=== PATIENT | female | born 1995 | race Caucasian/White ===

== ENCOUNTER → 2017-08-20 | Outpatient (CLI) | payer OTHER, BC ==
[2017-08-20 12:11] LABS: HEMATOCRIT 33.1 % (37-47)
== END | disposition home or self-care (01) ==
LOC: C.LAB1850 10:25
PROVIDERS: ATTEND Obstetrics & Gynecology
DX: Z34.02 Encounter for supervision of normal first pregnancy, second trimester (principal); R94.6 Abnormal results of thyroid function studies

== ENCOUNTER → 2017-09-04 | Outpatient (CLI) | payer BC, OTHER ==
[2017-09-04 13:26] LABS: GTGD 50 Grams
[2017-09-04 14:42] LABS: URINE APPEARANCE CLEAR (CLEAR); URINE BILIRUBIN NEG (NEG); URINE COLOR YELLOW; URINE EPITHELIAL CELL AUTO >30 /lpf (0-5); URINE NITRITE NEG (NEG); URINE SPECIFIC GRAVITY 1.015 (1.000-1.030); UROBILINOGEN NEG (NEG)
[2017-09-04 14:45] LABS: MANUAL MICROSCOPIC REQUIRED? NO; REVIEW REQ? NO
== END | disposition home or self-care (01) ==
LOC: C.LAB1850 11:41
PROVIDERS: ATTEND Obstetrics & Gynecology
DX: Z34.02 Encounter for supervision of normal first pregnancy, second trimester (principal)

== ENCOUNTER → 2017-10-22 | Outpatient (CLI) | payer OTHER | END | disposition home or self-care (01) | LOC: C.LABSPEC 10:48 | PROVIDERS: ATTEND Obstetrics & Gynecology | DX: Z34.03 Encounter for supervision of normal first pregnancy, third trimester (principal) ==

== ENCOUNTER 2017-11-19 17:24 | Inpatient (IN) | payer OTHER ==
[~2017-11-19] VITALS: Ht 157.5 cm; Wt 73.2 kg
[2017-11-19 17:47] VITALS: Ht 157.5 cm; Wt 73.2 kg
[2017-11-19] MEDS ORDERED: PRENTAB26 PO (18:28)
[2017-11-19] MEDS ORDERED: LACTATED RINGER'S 1000ML 1,000 ML IV SCH (23:38)
[2017-11-19] MEDS ORDERED: LACTATED RINGER'S 1000ML 1,000 ML IV PRN (23:38)
[2017-11-19] MEDS ORDERED: BUPIVACAINE 0.25% 30 ML VIAL ONE (23:47)
[2017-11-19] MEDS ORDERED: FENTANYL 2MCG/ML ROPIV 1.25MG/ML 100ML BAG EPI ONE (23:48)
[2017-11-19] MEDS ORDERED: FENTANYL CITRATE INJ 50 MCG/1 ML 2 ML VIAL ONE (23:48)
[2017-11-19] MEDS ORDERED: EpHEDrine SULFATE INJ 50 MG/ML AMP ONE (23:48)
[2017-11-20 00:26] LABS: HEMATOCRIT 33.1 % (37-47); HEMOGLOBIN 11.6 g/dL (12.0-16.0); MEAN CELL VOLUME 93.2 fL (80-100); MEAN CORPUSCULAR HEMOGLOBIN 32.7 pg (25-34); PLATELET COUNT 144 K/uL (130-400); RED CELL DISTRIBUTION WIDTH CV 12.9 % (11.5-14.5); RED CELL DISTRIBUTION WIDTH SD 44.5 fL (36.4-46.3); WHITE BLOOD COUNT 17.27 K/uL (4.8-10.8)
[2017-11-20] MEDS ORDERED: NALOXONE HCL INJ 1 MG in SODIUM CHLORIDE 0.9% 1000ML 1,000 ML IV PRN (01:44)
[2017-11-20] MEDS ORDERED: LACTATED RINGER'S 1000ML 500 ML IV PRN (01:44)
[2017-11-20] MEDS ORDERED: FENTANYL 2MCG/ML ROPIV 1.25MG/ML 100ML BAG EPI PRN (01:45)
[2017-11-20] MEDS ORDERED: NALOXONE HCL INJ 0.4 MG/1 ML VIAL/CARP IV PRN (01:45)
[2017-11-20] MEDS ORDERED: DiphenhydrAMINE HCL 50 MG/ML VIAL IV PRN (01:45)
[2017-11-20] MEDS ORDERED: NALBUPHINE HCL INJ 10 MG/ML AMP IV PRN (01:45)
[2017-11-20] MEDS ORDERED: ONDANSETRON INJ 2 MG/ML 2 ML VIAL IV PRN (01:45)
[2017-11-20] MEDS ORDERED: EpHEDrine SULFATE INJ 50 MG/ML AMP IV PRN (01:45)
[2017-11-20] MEDS ORDERED: OXYTOCIN 30 UNITS/500ML NSS IV ONE (04:43)
[2017-11-20] MEDS ORDERED: LACTATED RINGER'S 1000ML 1,000 ML IV SCH (05:37)
[2017-11-20] MEDS ORDERED: SUPERCREAM 0.870 % 15GM JAR EXT PRN (05:45)
[2017-11-20] MEDS ORDERED: LANOLIN OINT EXT PRN (05:45)
[2017-11-20] MEDS ORDERED: OXYCODONE/ACETAMINOPHEN 5-325 TAB PO PRN (05:45)
[2017-11-20] MEDS ORDERED: HYDROCORTISONE ACETATE 25 MG SUPP PR PRN (05:45)
[2017-11-20] MEDS ORDERED: OXYTOCIN 30 UNITS/500ML NSS IV PRN (05:45)
[2017-11-20] MEDS ORDERED: ACETAMINOPHEN 325 MG TAB PO PRN (05:45)
[2017-11-20] MEDS ORDERED: BENZOCAINE 20% AER SPR 82.5 GM CAN EXT PRN (05:45)
--- NOTE | 2017-11-20 07:21 | Anesthesia Procedure Note ---
Anesthesia Epidural Removal Nt Date & Time Nov 20, 2017 at 07:21 Vital Signs Pain Intensity: 0.0 Notes Mental Status: alert / awake / arousable, participated in evaluation Nausea / Vomiting: adequately controlled Pain: adequately controlled Airway Patency, RR, SpO2: stable & adequate BP & HR: stable & adequate Hydration State: stable & adequate Neuraxial Anesthesia: was administered Anesthetic Complications: no major complications apparent, pt satisfied with anesthetic care Epidural: removed without complications, with tip intact
[2017-11-20] MEDS: IBUPROFEN 600 MG TAB PO PRN ×3 (07:36→22:23)
[2017-11-20] MEDS: PRENATAL VITAMIN TAB PO SCH (08:00)
[2017-11-20] MEDS: DOCUSATE SODIUM 100 MG CAP PO SCH ×2 (08:00→20:52)
[2017-11-20 08:40] VITALS: BP 106/74; PULSE 108; TEMP 37.2; O2SAT 95
--- NOTE | 2017-11-20 09:52 | DELIVERY SUMMARY ---
DATE OF OPERATION: 11/20/2017 PREOPERATIVE DIAGNOSES: 1. Davey intrauterine at 40 plus weeks. 2. Spontaneous onset of labor. 3. Group B Strep negative. POSTOPERATIVE DIAGNOSES: Same. PROCEDURE: Spontaneous vaginal delivery and repair of second degree perineal laceration. SURGEON: Dr. Yadira Umana. [employer] WARRANT OFFICER: None. ESTIMATED BLOOD LOSS: 300. DISPOSITION: Stable in labor and delivery. DESCRIPTION OF PROCEDURE: April is a 1, para 0, who presented at full term and spontaneous labor. She was managed with an epidural for pain management and artificial rupture of membranes. She reached complete dilation with an urge to push and did very well with her pushing and then I was called for delivery. She was prepped and then over the next several pushes, was able to bring the head to crowing and ultimately delivered. The shoulders delivered with no difficulty and a vigorous female infant was placed on the maternal abdomen with the cord was doubly clamped and cut by the father of the baby. The placenta delivered spontaneously and was intact with a 3-vessel cord. Examination revealed no lacerations of the cervix or vagina; however, there was a second degree perineal laceration, which was repaired in the usual fashion with Vicryl suture. At the completion of repair, the patient and are in stable condition having tolerated delivery well and the fundus was firm with minimal lochia. I attest to the content of the Intraoperative Record and any orders documented therein. Any exception s are noted below.
[2017-11-20 11:30] VITALS: BP 100/63; PULSE 84; TEMP 36.7; O2SAT 97
[2017-11-20 15:40] VITALS: BP 115/76; PULSE 87; TEMP 36.6; O2SAT 96
[2017-11-20 20:10] VITALS: BP 107/71; PULSE 92; TEMP 36.7; O2SAT 98
[2017-11-21] VITALS: BP 106/70; PULSE 81; TEMP 36.6; O2SAT 96; O2SAT 98
[2017-11-21 04:00] VITALS: BP 106/72; PULSE 75; TEMP 36.6; O2SAT 98
[2017-11-21 06:55] LABS: HEMATOCRIT 29.6 % (37-47); HEMOGLOBIN 10.3 g/dL (12.0-16.0)
--- NOTE | 2017-11-21 07:23 | Progress Note ---
Subjective Nov 21, 2017. Subjective conversation w/ patient, physical exam Ambulation: ambulating normally Feeding Type: Breast Feeding Objective Vital Signs Date Time Temp Pulse Resp B/P (MAP) Pulse Ox O2 Delivery O2 Flow Rate FiO2 11/21/17 04:00 36.6 75 18 106/72 (83) 98 Room Air 11/21/17 00:00 96 Room Air 11/21/17 00:00 36.6 81 16 106/70 (82) 98 Room Air 11/20/17 20:10 36.7 92 20 107/71 (83) 98 Room Air 11/20/17 15:40 36.6 87 18 115/76 (89) 96 Room Air 11/20/17 15:40 96 Room Air 11/20/17 11:30 36.7 84 18 100/63 (75) 97 Room Air 11/20/17 08:40 95 Room Air 11/20/17 08:40 37.2 108 20 106/74 (85) 95 Room Air Physical Exam General Appearance: WELL-APPEARING, NO APPARENT DISTRESS Fundus: Firm Extremities: no calf tenderness Laboratory Results Last 24 Hours Test 11/21/17 06:43 Hemoglobin 10.3 g/dL Hematocrit 29.6 % Assessment and Plan Post- Day#: 1 Continue Routine Care: - routine care - doing well
[2017-11-21 07:35] VITALS: BP 101/68; PULSE 71; TEMP 36.6; O2SAT 98
[2017-11-21] MEDS: DOCUSATE SODIUM 100 MG CAP PO SCH ×2 (08:20→20:50)
[2017-11-21] MEDS: PRENATAL VITAMIN TAB PO SCH (08:20)
[2017-11-21] MEDS: IBUPROFEN 600 MG TAB PO PRN ×2 (08:21→16:20)
[2017-11-21] MEDS ORDERED: DIPHTHERIA/TETANUS/PERTUSSIS 0.5 ML SYR/VIAL IM. ONE (09:00)
[2017-11-21 15:30] VITALS: BP 124/83; PULSE 80; TEMP 36.6
[2017-11-21 19:30] VITALS: BP 108/73; PULSE 60; TEMP 36.4
[2017-11-22 00:10] VITALS: BP 119/78; PULSE 71; TEMP 36.7; O2SAT 98
[2017-11-22] MEDS: IBUPROFEN 600 MG TAB PO PRN ×2 (00:20→09:00)
--- NOTE | 2017-11-22 08:04 | Progress Note ---
Subjective Nov 22, 2017. Subjective conversation w/ patient, physical exam, chart review Ambulation: ambulating normally Voiding: no voiding problems Diet Tolerance: Regular Diet Lochia: Small Objective Vital Signs Date Time Temp Pulse Resp B/P (MAP) Pulse Ox O2 Delivery O2 Flow Rate FiO2 11/22/17 00:10 36.7 71 16 119/78 (92) 98 Room Air 11/22/17 00:10 98 Room Air 11/21/17 19:30 36.4 60 20 108/73 (85) Room Air 11/21/17 15:30 36.6 80 20 124/83 (97) Room Air 11/21/17 15:30 Room Air Physical Exam General Appearance: WELL-APPEARING Abdomen: non tender Fundus: Firm Extremities: no calf tenderness Assessment and Plan Post- Day#: 2 Continue Routine Care: Patient is doing well minimal bleeding no calf tenderness plan discharge today
--- NOTE | 2017-11-22 08:05 | Discharge Instructions ---
Discharge Instructions Date of Service Nov 22, 2017. Admission Reason for Admission: Check Labor Discharge Discharge Diagnosis / Problem: Discharge Goals Goal(s): Routine recovery after delivery Activity Recommendations Activity Limitations: per Instructions/Follow-up section . Instructions / Follow-Up Instructions / Follow-Up ACTIVITY RECOMMENDATIONS: * Gradual return to full activity over the next 2-3 weeks. * No lifting - nothing heavier than baby over the next 2-3 weeks. * Do not engage in vigorous exercise, sexual activity or sports until cleared by your physician. * Do not drive or operate any motorized equipment until cleared by your physician. * You may shower/bathe daily. MEDICATIONS: For discomfort or pain, you may use Acetaminophen (Tylenol), Ibuprofen (Advil), or Naproxen (Aleve) following the package directions. For constipation you may use Colace following the package directions. BREAST CARE: If you are not breast feeding: * Wear a supportive bra 24 hours a day for one to two weeks. * Avoid stimulating your breasts and nipples as much as possible during the first few weeks after delivery. * When taking a shower, have the warm water hit your back, not breasts. * When your breasts feel full, apply ice packs. Usually three to four times a day helps ease the discomfort. * Take a mild pain medication (Tylenol / Motrin) when you are uncomfortable. If breast feeding: * Use breast milk to lubricate nipples. Lansinoh cream may be used for sore nipples. You do not need to remove cream prior to breast feeding. If using a different brand of cream, check the label for directions regarding removal of cream prior to nursing. * Wear a supportive bra. * If having problems with breasts or breast feeding, call a financial management consultant or your health care provider. EPISIOTOMY CARE: After delivery, if you have an episiotomy (stitches), the following steps will ease discomfort and aid healing. * For the first 24 hours after delivery, place ice packs next to your episiotomy to help reduce swelling. * After the first 24 hour-period, sitz baths, either portable or in the tub, are suggested. A shower with a shower arm sprayed over the episiotomy may be comforting. * Dahlia care should be done after each voiding and bowel movement. Squirt warm water from a plastic bottle over the perineum (region of the body between the anus and urinary opening) and pat dry. * Use Dermoplast to ease discomfort. Shake container. [place] directly over the episiotomy. Place a Tucks on a clean sanitary pad next to your episiotomy. SPECIAL CARE INSTRUCTIONS: When you are discharged from the hospital, it is important for you to follow the instructions listed below: * During the first week at home, you should be able to care for yourself and your baby. In addition, the usual light household activities are encouraged. * Limit your activities to the way you feel. Do not try to clean the house or move furniture. Be sensible. * If you actively engage in sports and have done so up until the time of your delivery, you may resume these activities as soon as you feel able. This may take up to one month or even longer. Use good judgment. * Continue to take your vitamins for at least six weeks after the of your baby. * Your diet need not be limited unless you were on a special diet before your delivery. Breast-feeding mothers need around 2500 calories per day and at least 64-80 ounces of fluid per day (8 to 10 glasses). * You should eat foods from the four major food groups. Crash diets or fad diets are to be avoided. Eating lean meats, fresh fruits and vegetables, low-fat dairy products, high fiber foods and a regular exercise program, will help you get back to your pre- weight without putting your health at risk. * Constipation is sometimes a problem after delivery. Take a mild laxative as needed. If breast feeding, Milk of Magnesia is acceptable to use. You may use a suppository or Fleets enema if no episiotomy. * A daily shower or tub bath is suggested. Be sure to thoroughly and gently dry the perineum. * A bloody vaginal discharge will usually continue until around four weeks post . A small amount of bleeding may continue for as long as six weeks. Vaginal discharge changes from the bright red bleeding after delivery to pink then brownish and finally yellowish-pink before becoming white and disappearing. * Bleeding may increase with activity. Your first period may come in 4-8 weeks. If you are breast feeding, your period may be delayed even longer. * [place] (sex) can begin whenever both you and your partner feel comfortable and do not have any form of genital infection. It is recommended that you wait at least six weeks for internal and external healing to occur. If you have questions, please talk to your health care practitioner. A condom should be used to prevent infection and . * Foreplay, gentle intercourse and lubrication is very important the first several times to prevent pain. A water-based lubricant such as K-Y jelly or Astroglide may be used. * If you have RH negative blood and your baby is RH positive, you will receive RHOGAM by injection prior to discharge. The nurse will give you a card to keep with you that has the date and place that you received RHOGAM after delivery. * During your care, you had a Rubella screen done to check for the presence of rubella antibodies in your blood. If your test was negative, you will receive a Rubella vaccine prior to discharge. This vaccine may cause a fever, soreness at the injection site and flu-like symptoms. If these symptoms persist, notify your health care practitioner. is not advised for one month after a Rubella vaccine. * Verbalizes understanding of car seat law as reviewed with patient nursing. * Car Seat hand-out given and reviewed with patient by nursing. * Shaken baby information reviewed with patient by nursing. Call you doctor if: * Heavy bleeding (saturating several pads an hour) or passing clots the size of your fist. * A fever >101 degrees F (38.3 degrees C) on two occasions four hours apart and /or chills. * Unusual pain in the pelvic or vaginal areas. * "Baby Blues" lasting longer than two weeks. If you have any questions or concerns, call your health care practitioner at . FOLLOW UP VISIT: * Please call the office at to schedule a 6 week examination. It is important you keep this appointment. It is important for you to make arrangements for either yearly or twice yearly check-ups thereafter. Current Hospital Diet Patient's current hospital diet: Regular OB Diet Discharge Diet Recommended Diet: Regular OB Diet Pending Studies Studies pending at discharge: no Medical Emergencies . Who to Call and When: Medical Emergencies: If at any time you feel your situation is an emergency, please call 911 immediately. . Non-Emergent Contact Non-Emergency issues call your: Assistant Community Director . . "Provider Documentation" section prepared by Artie Herrera. .
[2017-11-22 08:35] VITALS: BP 127/84; PULSE 85; TEMP 36.3
[2017-11-22] MEDS: DOCUSATE SODIUM 100 MG CAP PO SCH (08:57)
[2017-11-22] MEDS: PRENATAL VITAMIN TAB PO SCH (08:57)
[2017-11-22 11:20] VITALS: BP_DIAS 84; PULSE 85; TEMP 36.3
== END 2017-11-22 12:00 | disposition home or self-care (01) | DRG 775 ==
LOC: C.LD 17:24 → C.OPB 17:24 → C.LD 23:42 → C.OPB 23:42 → C.OBG 11-20 08:42
PROVIDERS: ADMIT Obstetrics & Gynecology; ATTEND Obstetrics & Gynecology
PROC: 10E0XZZ Delivery of Products of Conception, External Approach (ICD-10-PCS; principal; 2017-11-20)
PROC: 0KQM0ZZ Repair Perineum Muscle, Open Approach (ICD-10-PCS; principal; 2017-11-20)
DX: O48.0 Post-term pregnancy (principal); O70.1 Second degree perineal laceration during delivery; Z3A.40 40 weeks gestation of pregnancy; Z37.0 Single live birth; Z88.0 Allergy status to penicillin

== ENCOUNTER 2020-01-05 07:35 | Inpatient (IN) ==
[2020-01-05] MEDS ORDERED: OXYTOCIN 30 UNITS/500 ML BAG IV PRN ×3 (07:48→16:03)
[2020-01-05] MEDS ORDERED: CEFAZOLIN 1000MG 1,000 MG/7.5 ML SYR IV PRN (07:49)
[2020-01-05] MEDS ORDERED: CEFAZOLIN 2000MG 2,000 MG/15 ML SYR IV ONE (08:15)
[2020-01-05 08:31] LABS: Hematocrit (blood only) 31.3 % (37-47); Mean Corpuscular Hemoglobin 28.7 pg (25-34); Mean Corpuscular Volume 89.7 fL (80-100); Mean Platelet Volume 11.3 fL (7.4-10.4); Platelet Count 171 K/uL (130-400); RDW Coefficient of Variation 14.5 % (11.5-14.5); RDW Standard Deviation 47.4 fL (36.4-46.3); Red Blood Count 3.49 M/uL (4.2-5.4); White Blood Count 14.29 K/uL (4.8-10.8)
[2020-01-05 08:33] LABS: Mean Corpuscular Hgb Conc 31.9 g/dL (32-36)
[2020-01-05] MEDS: LACTATED RINGER'S 1,000 ML IV PRN ×2 (09:23→14:00)
--- NOTE | 2020-01-05 10:04 | History & Physical Report ---
Date of Service January 05, 2020 Assessment & Plan (1) Supervision of normal intrauterine in multigravida: 24yo at 39.3 weeks GA.Elective IOL. 1. Fetus: Cat 1 2. Labor: S/p ojeda. Will start oxytocin 3. GBS positive: PCN 4. Vital: WNL (2) Club foot, , affecting care of mother, antepartum: [place] [facility] [place] . (3) LGSIL on Pap smear of cervix: (4) GBS (group B Streptococcus carrier), +RV culture, currently : History of Present Illness Primary Care Provider: NO PCP April is a 24yo at 39.3 weeks GA. Presents for elective IOL. complicated by Bilateral club feet, and GBS positive with PCN allergy. Patient had cervical ripening ojeda last night. Denies LOF, VB,regular contraction. Good FM Allergies Allergy/AdvReac Type Severity Reaction Status Date / Time amoxicillin Allergy Intermediate HIVES Verified 01/05/20 08:03 Home Medications Home Medications Medication Instructions Recorded Confirmed Type ferrous sulfate [Iron (ferrous 325 mg PO DAILY 01/04/20 01/05/20 History sulfate)] vit no.[id number] 1 tab PO DAILY 01/04/20 01/05/20 History [ Vitamin] Patient History Social History (Updated 09/27/19 @ 10:28 by Sandy Ramos) Preferred Language: Maori Communication Ability: Effective Bottom Saw Operator Required: No Beliefs That Will Affect Care: None marital status: marital status details: rigo Reyes (21) [phone] Current Living Situation: Family Current Living Situation Comment: grandparents and Tello (fiance), daughter every other week current occupational status: employed 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 Other Information That Helps Us Care for You: No Feels Safe at Home: Yes Safety Concerns: Feels Safe At This Time Smoking Status: Never smoker Second Hand Exposure: No ; Hx Alcohol Use: No Hx Substance Use: No Physical Exam Constitutional: WD/WN, vitals as above well developed, well nourished and + well hydrated; no acute distress Eyes: PERRL, conjunctivae normal, anicteric sclerae ENMT: external ear and nose normal, oropharynx normal Neck: trachea midline, no thyromegaly Respiratory: normal respiratory effort; no respiratory distress, no labored breathing and no cough Gastrointestinal (Abdomen): normal bowel sounds, soft, nontender, no hepatosplenomegaly Inspection/Auscultation: abdomen not distended and no abdominal edema Musculoskeletal: no cyanosis or clubbing, extremities motor strength 5/5 Head/Neck/Chest: + head abnormal to inspection Skin: no rashes, warm and dry normal turgor Neurologic: PERRL, EOMI, accommodation nl, no face palsy, no dysarthria normal touch/pain/proprioception Psychiatric: A+Ox3, euthymic affect Apperance: appropriately dressed and appropriately groomed Genitourinary: normal external appearance Speculum/Bimanual Exam: uterus nontender OB Exam Abdomen: + vertex (By BSUS) Manual OB Exam: + cervical dilation 4 cm, + cervical effacement 50% and + station high OB Exam Monitor Tracing: + external FHT monitor used, + external uterine monitor used, + category I and + normal FHT variability; no early decelerations present, no late decelerations present and no variable decelerations Lymphatic: no cervical or axillary lymphadenopathy Results & Data Vital Signs (Past 12 Hours) Vital Signs Temp Pulse Resp BP 01/05/20 09:34 86 109/63 01/05/20 07:47 36.8 C 20 01/05/20 07:43 95 H 110/67 Coding Level of Care Code None Diagnoses Supervision of normal intrauterine in multigravida Z34.80 Club foot, , affecting care of mother, antepartum O35.8XX0 LGSIL on Pap smear of cervix R87.612 GBS (group B Streptococcus carrier), +RV culture, currently O99.820
[2020-01-05] MEDS ORDERED: BUPIVACAINE 0.25% 30 ML VIAL ONE (13:33)
[2020-01-05] MEDS ORDERED: ePHEDrine sulfate 50 MG/ML AMP ONE (13:33)
[2020-01-05] MEDS ORDERED: fentaNYL citrate 100 MCG/2 ML VIAL ONE (13:34)
[2020-01-05] MEDS ORDERED: fentaNYL 2MCG/ML ROPIV 1.25MG/ML 100 ML BAG EPI ONE (13:34)
[2020-01-05] MEDS ORDERED: fentaNYL 2MCG/ML ROPIV 1.25MG/ML 100 ML BAG EPI PRN (14:23)
[2020-01-05] MEDS ORDERED: NALOXONE HCL 1 MG in SODIUM CHLORIDE 0.9% 1000ML 1,000 ML IV PRN (14:23)
[2020-01-05] MEDS ORDERED: ePHEDrine sulfate 50 MG/ML AMP IV PRN (14:23)
[2020-01-05] MEDS ORDERED: DiphenhydrAMINE HCL 50 MG/ML VIAL IV PRN (14:23)
[2020-01-05] MEDS ORDERED: PROMETHAZINE HCL 6.25 MG in SODIUM CHLORIDE 0.9% 50 ML IV PRN (14:23)
[2020-01-05] MEDS ORDERED: NALBUPHINE HCL INJ 10 MG/ML AMP IV PRN (14:23)
[2020-01-05] MEDS ORDERED: ONDANSETRON INJ 2 MG/ML 2 ML VIAL IV PRN (14:23)
[2020-01-05] MEDS ORDERED: NALOXONE HCL 0.4 MG/1 ML VIAL/CARP IV PRN (14:23)
--- NOTE | 2020-01-05 14:23 | Anesthesiology Consultation ---
Date of Service January 05, 2020 Assessment & Plan (1) Encounter for pre-operative examination: Chart Review Chart Review: Patient NOT seen in Pre Admission Testing and Acceptable Risk for Labor Epidural Consults Requested none ASA ASA2 Proposed Anesthesia Anesthesia Type: Labor Epidural Risk / Benefits Reviewed With: PT / POA / Parent / Guardian, Accepts Plan and Informed Consent Obtained History Height/Weight Height: 5 ft 3 in Weight: 71.668 kg Allergies Allergy/AdvReac Type Severity Reaction Status Date / Time amoxicillin Allergy Intermediate HIVES Verified 01/05/20 08:03 Medications Home Medications Medication Instructions Recorded Confirmed Last Taken ferrous sulfate [Iron (ferrous 325 mg PO DAILY 01/04/20 01/05/20 01/04/20 08:00 sulfate)] vit no.[id number] 1 tab PO DAILY 01/04/20 01/05/20 01/04/20 08:00 [ Vitamin] Active Medications Generic Name Dose Route Start Last Admin Trade Name Freq PRN Reason Stop Dose Admin Lactated Ringer's 1,000 mls @ 125 mls/hr 01/05/20 07:48 01/05/20 14:00 Lr IV 01/07/20 07:47 999 mls/hr .Q8H PRN Administration L&D Protocol Protocol Oxytocin 30 units in 500 mls @ 14 mls/hr 01/05/20 07:49 01/05/20 13:02 Pitocin IV 01/07/20 07:48 0.84 units/hr .Q24H PRN 14 mls/hr Labor Induction/Augmentation Titration Protocol 0.84 UNITS/HR NPO Date Last Intake of Fluids: 01/05/20 Time Last Intake of Fluids: 13:00 Date Last Intake of Solids: 01/05/20 Time Last Intake of Solids: 06:30 Past Medical History Medical History Cervical cancer screening History of chicken pox Iron deficiency LGSIL (low grade squamous intraepithelial dysplasia) repeat pap within 12 months Exercise / Class Metabolic Activity II 4-5 Yardwork/Stairs/Walk up hill Past Family History Family History Mother Thyroid disease Past Surgical History Surgical History S/P wisdom tooth extraction Past Anesthesia History No Hx of Anesthesia Complications and No Family Hx of Anesthesia Complications History of PONV No Hx of PONV and No Hx of Motion Sickness Social History Smoking Status: Never smoker Hx Alcohol Use: No Hx Substance Use: No substance use type: does not use Physical Exam Vital Signs Last Vital Signs Temp 36.6 C 01/05/20 13:01 Pulse 82 01/05/20 14:18 Resp 16 01/05/20 13:01 BP 94/53 L 01/05/20 14:18 Pulse Ox 98 01/05/20 14:17 ENMT Mouth: no dentition abnormality Thyromental Distance: > or= 3.5 Finger Breadths Mallampati Class: II Neck normal visual inspection Respiratory normal respiratory effort Auscultation: lungs clear to auscultation bilaterally Cardiovascular Rate/Rhythm: regular rate and regular rhythm Psychiatric Orientation: alert Testing Laboratory Results 01/05/20 08:21 Blood Type A Positive 01/05/20 08:21 Antibody Screen NEGATIVE 01/05/20 08:21
[2020-01-05] MEDS ORDERED: SUPERCREAM 0.870% 15 GM JAR EXT PRN (16:03)
[2020-01-05] MEDS ORDERED: DIPHTHERIA/TETANUS/PERTUSSIS 0.5 ML SYR/VIAL IM ONE (16:03)
[2020-01-05] MEDS ORDERED: HYDROCORTISONE ACETATE 25 MG SUPP PR PRN (16:03)
[2020-01-05] MEDS ORDERED: BENZOCAINE 20% AER SPR 82.5 GM CAN EXT PRN (16:03)
--- NOTE | 2020-01-05 16:22 | Delivery Summary ---
DATE OF OPERATION: 01/05/2020 PROCEDURE: Normal spontaneous vaginal delivery with first degree perineal laceration repair. SURGEON: Nacho Love MD PREOPERATIVE DIAGNOSES: 1. Single intrauterine at 39 weeks 3 days gestational age. 2. Known bilateral clubfeet. 3. GBS positive. POSTOPERATIVE DIAGNOSES: Same status post delivery. ESTIMATED BLOOD LOSS: 200 mL. DRAINS: Straight cath at the completion of the case. URINE OUTPUT: 400 mL via straight catheterization. COMPLICATIONS: None. FINDINGS: Viable male with weight pending and Apgars of 8 and 9 at 1 and 5 minutes respectively. INDICATIONS: Susan is a 24-year-old G2, P1-0-0-1 admitted at 39 weeks 3 days gestational age for elective induction of labor. Of note the patient was noted to be in transverse backup position while being seen in clinic yesterday and during the exam the patient was noted to have transition to cephalic position. She was initially scheduled for in which she was offered a transition to induction of labor, which the patient was agreeable to. The patient presented yesterday for transcervical Pan for ripening, which was removed this morning. The patient was initially found to be 4 cm dilated, 50% effaced, -3 station. She started on oxytocin per regular protocol and received Ancef with penicillin allergy. The patient progressed in labor and received an epidural for anesthesia. She underwent spontaneous rupture of membranes for clear fluid and progressed to complete-complete +2 station, pushed over approximately 3 contractions for delivery. DESCRIPTION OF PROCEDURE: The patient progressed to 10 cm dilated, 100% effaced, +2 station, pushed over intact perineum with epidural anesthesia and delivered a viable male infant with weight and Apgars as noted above. Head of the delivered in SHERINE position, rest into right transverse. Nuchal cord x1 was noted which was easily reduced. Body and shoulders quickly followed. was noted to be vigorous soon after delivery and a 1-minute delayed cord clamping was initiated. The cord was then double clamped and cut. remained on maternal abdomen as it was still noted to be vigorous. Cord blood for typing was obtained. Attention was then turned to deliver the placenta, which was delivered intact, 3-vessel cord, gentle cord traction. The patient was noted to have some lower uterine segment atony and was straight cathed for 100 mL of clear urine. The inspection of perineum, vagina, and cervix noted a small first-degree perineal laceration which was repaired with 0 Vicryl continuous running stitch. Needle, sponge and instrument counts were correct at the completion of the case. Both mother and were stable in the immediate post-delivery period. I attest to the content of the Intraoperative Record and any orders documented therein. Any exception s are noted below.
--- NOTE | 2020-01-05 16:44 | Anesthesia Procedure Note ---
Date of Service January 05, 2020 Anesthesia Post Epidural Note Vital Signs Vital Signs: Temp Pulse Resp BP Pulse Ox 98.2 F 92 H 20 106/60 97 01/05/20 14:27 01/05/20 16:31 01/05/20 16:31 01/05/20 16:31 01/05/20 15:47 Pain Intensity Abdomen: Pain Intensity: 0 Notes Mental Status: alert / awake / arousable and participated in evaluation Nausea / Vomiting: adequately controlled Pain: adequately controlled Airway Patency, RR, SpO2: stable & adequate BP & HR: stable & adequate Hydration State: stable & adequate Neuraxial Anesthesia: was administered and sensory block is resolving Anesthetic Complications: no major complications apparent and Pt Satisfied with anesthetic care Epidural: Removed without complications and With tip intact
[2020-01-05] MEDS: IBUPROFEN 600 MG TAB PO PRN (21:24)
[2020-01-05] MEDS: DOCUSATE SODIUM 100 MG CAP PO SCH (21:24)
[2020-01-06] MEDS: ACETAMINOPHEN 325 MG TAB PO PRN ×2 (00:18→08:20)
[2020-01-06] MEDS: IBUPROFEN 600 MG TAB PO PRN ×4 (04:35→20:32)
[2020-01-06 06:15] LABS: Hematocrit (blood only) 29.6 % (37-47); Hemoglobin 9.7 g/dL (12.0-16.0)
--- NOTE | 2020-01-06 06:57 | Obstetrical Progress Note ---
Date of Service January 06, 2020 Assessment & Plan (1) Encounter for visit: S/p day 1. Doing well. Continue routine care Subjective Ambulation: ambulating normally Voiding: no voiding problems Passing Gas:: Yes Diet Tolerance:: regular diet Lochia:: Moderate Physical Exam Constitutional WD/WN, vitals as above Respiratory normal respiratory effort; no respiratory distress and no labored breathing Gastrointestinal (Abdomen) Inspection/Auscultation: abdomen normal to inspection; abdomen not distended Percussion/Palpation: abdomen soft; abdomen nontender, no guarding and abdomen not rigid Genitourinary OB Exam Abdomen: + fundal height Fundus: + firm and + relation to umbilicus (Below); not tender and not boggy Results & Data Vital Signs (Past 12 Hours) Vital Signs Temp Pulse Pulse Resp BP BP 01/06/20 04:30 36.3 C L 77 20 103/69 01/05/20 23:00 36.7 C 80 18 114/75 01/05/20 20:10 36.9 C 96 H 18 105/71 01/05/20 19:16 93 H 101/56 L 01/05/20 19:01 87 100/57 L 01/05/20 18:46 87 100/58 L 01/05/20 18:31 107 H 20 101/57 L 01/05/20 18:16 86 98/58 L
[2020-01-06] MEDS: PRENATAL VITAMIN 1 TAB PO SCH (08:20)
[2020-01-06] MEDS: DOCUSATE SODIUM 100 MG CAP PO SCH ×2 (08:20→20:32)
[2020-01-06] MEDS: FERROUS SULFATE 325 MG TAB PO SCH (08:20)
[2020-01-06] MEDS ORDERED: bisacodyL 5 MG TABEC PO SCH (20:00)
[2020-01-07] MEDS ORDERED: bisacodyL 10 MG SUPP PR PRN (06:00)
--- NOTE | 2020-01-07 08:05 | Obstetrical Progress Note ---
Date of Service January 07, 2020 Assessment & Plan (1) Supervision of normal intrauterine in multigravida: - doing well - desires d/c - instructions given - f/u in 6 weeks Subjective Ambulation: ambulating normally Voiding: no voiding problems Feeding Type:: breast feeding Physical Exam Constitutional WD/WN, vitals as above Gastrointestinal (Abdomen) Fundus firm below umbilicus Musculoskeletal No deep calf tenderness Results & Data Vital Signs (Past 12 Hours) Vital Signs Temp Pulse Resp BP Pulse Ox 01/06/20 23:20 98.2 F 77 14 107/69 98 01/06/20 20:20 97.7 F 85 16 107/69 97
[2020-01-07] MEDS: FERROUS SULFATE 325 MG TAB PO SCH (08:13)
[2020-01-07] MEDS: PRENATAL VITAMIN 1 TAB PO SCH (08:13)
[2020-01-07] MEDS: IBUPROFEN 600 MG TAB PO PRN (08:14)
[2020-01-07] MEDS: DOCUSATE SODIUM 100 MG CAP PO SCH (08:14)
== END 2020-01-07 11:25 | disposition home or self-care (01) | DRG 807 ==
LOC: 4S1 07:35 → 4S2 19:35